=== PATIENT | male | born 1990 | race Caucasian/White ===

== ENCOUNTER 2025-01-02 02:27 | Emergency (ER) | payer MEDICAID ==
[~2025-01-02] VITALS: Ht 172.7 cm; Wt 70.0 kg
[2025-01-02 02:32] VITALS: O2SAT 100
[2025-01-02] MEDS: LORAZEPAM 2MG/ML INJ IV STA (04:06)
[2025-01-02] MEDS: MIDAZOLAM HCL 2 MG/2 ML VIAL IV ONE (04:47)
[2025-01-02 04:56] LABS: HEMATOCRIT. 39.7 % (42.0-52.0); HEMOGLOBIN. 13.5 g/dL (14.0-18.0); MEAN CORPUSCULAR HGB CONC 33.9 g/dL (31.0-37.0); MEAN CORPUSCULAR VOLUME 91.3 fL (80.0-94.0); PLATELET 346 x1000/uL (130-400); RED BLOOD CELL COUNT 4.35 mill/uL (4.7-6.1); RED CELL DISTRIBUTION WIDTH 13.2 % (11.6-14.6); WHITE BLOOD COUNT 5.7 x1000/uL (4.5-11.0)
[2025-01-02 05:02] LABS: DIFFERENTIAL COMMENT 1
[2025-01-02 05:10] LABS: CHLORIDE 101 mEq/L (98-107); POTASSIUM 3.5 mEq/L (3.5-5.1); SODIUM 141 mEq/L (136-145)
[2025-01-02 05:11] LABS: CARBON DIOXIDE 29 mEq/L (21-32)
[2025-01-02 05:12] LABS: CALCIUM 9.5 mg/dL (8.7-10.4)
[2025-01-02 05:16] LABS: CREATININE 0.9 mg/dL (0.6-1.3); GLUCOSE 90 mg/dL (70-105)
[2025-01-02 05:17] LABS: UREA NITROGEN BLOOD 10 mg/dL (9-23)
[2025-01-02 05:18] LABS: ACETAMINOPHEN < 2 ug/mL (10-30); CREATINE KINASE 277 IU/L (46-171)
[2025-01-02 06:06] LABS: ETHANOL BLOOD < 10 mg/dL (<10)
[2025-01-02 06:44] LABS: PLATELET ESTIMATE NORMAL
[2025-01-02 10:45] VITALS: BP 101/53; PULSE 88; RESP 15; TEMP 37.1; O2SAT 100
== END 2025-01-02 10:50 | disposition home or self-care (01) ==
LOC: ER 02:27
DX: F41.9 Anxiety disorder, unspecified (principal); F15.10 Other stimulant abuse, uncomplicated; Z79.899 Other long term (current) drug therapy
CPT/HCPCS: 80048; 80307; 80329; 80320; 82550; 85025; 36415; 93005; 96374; 96375; 99284; J2060; J2250; Z7610; A4606; G0480